=== PATIENT | female | born 1985 | race Hispanic/Latino ===

== ENCOUNTER 2017-12-03 00:55 | Emergency (ER) | payer MEDICAID ==
[2017-12-03] MEDS ORDERED: ONDANSETRON HCL 4 MG/2 ML VIAL ONE (02:06)
[2017-12-03] MEDS ORDERED: SODIUM CHLORIDE 0.9% 1000ML 1,000 ML IV ONE (02:06)
[2017-12-03 02:15] LABS: BASOPHILS % (AUTO) 2.2 % (0.0-5.0); EOSINOPHILS % (AUTO) 0.5 % (0.0-8.0); HEMATOCRIT 46.6 % (36-48); LYMPHOCYTES % (AUTO) 6.1 % (21.0-51.0); MEAN CORPUSCULAR HEMOGLOBIN 30.6 pg (27.0-33.0); MEAN CORPUSCULAR HGB CONC 33.9 g/dL (32.0-36.0); MEAN CORPUSCULAR VOLUME 90.3 fL (79-99); NEUTROPHILS % (AUTO) 86.2 % (40.0-77.0); PLATELET COUNT (AUTO) 225 K/uL (130-400); RED BLOOD CELL COUNT(AUTO) 5.16 MIL/uL (4.00-5.50); RED CELL DISTRIBUTION WIDTH 13.4 % (11.0-15.5); WHITE BLOOD COUNT (AUTO) 7.7 K/uL (4.8-10.8)
[2017-12-03 02:25] LABS: CREATININE 0.8 mg/dL (0.5-1.5); POTASSIUM 4.3 mmol/L (3.5-5.1)
[2017-12-03 02:28] LABS: BILIRUBIN,TOTAL 0.7 mg/dL (0.2-1.0)
[2017-12-03 02:32] LABS: APPEARANCE,URINE Clear (CLEAR); BILIRUBIN,URINE Negative (NEGATIVE); COLOR,URINE Yellow (YELLOW); GLUCOSE, URINE (UA) Negative (NEGATIVE); KETONES,URINE Negative (NEGATIVE); LEUKOCYTE ESTERASE ,URINE Negative (NEGATIVE); NITRATE,URINE Negative (NEGATIVE); OCCULT BLOOD,URINE Nonhemolyzed Trace (NEGATIVE); PH,URINE 5.5 (5.0-8.0); PROTEIN,URINE Negative (NEGATIVE); UROBILINOGEN,URINE 0.2 mg/dL (0.2-1.0)
[2017-12-03 02:42] LABS: AMPHET/METH SCREEN,URINE NEGATIVE (NEGATIVE); BACTERIA,URINE Rare /HPF (None Seen); BARBITURATE SCREEN, URINE NEGATIVE (NEGATIVE); BENZODIAZEPINES SCREEN,URINE POSITIVE (NEGATIVE); CANNABINOID SCREEN,URINE NEGATIVE (NEGATIVE); COCAINE SCREEN,URINE NEGATIVE (NEGATIVE); MUCUS,URINE Few LPF (None Seen); OPIATE SCREEN,URINE NEGATIVE (NEGATIVE); PHENCYCLIDINE SCREEN,URINE NEGATIVE (NEGATIVE); RBC,URINE 0-1 /HPF (0-1); SQUAMOUS EPITHELIAL CELL,UR Few /LPF (0-2); WBC,URINE 0-1 /HPF (0-1)
[2017-12-03 02:43] LABS: HCG,QUAL RESULT NEGATIVE (NEGATIVE)
[2017-12-03] MEDS ORDERED: HYOSCYAMINE SULFATE 0.125 MG TAB.SUBL SL ONE (03:52)
== END 2017-12-03 04:23 | disposition home or self-care (01) ==
LOC: EDH 00:55
DX: K52.9 Noninfective gastroenteritis and colitis, unspecified (principal); F31.9 Bipolar disorder, unspecified; Z90.49 Acquired absence of other specified parts of digestive tract; Z98.890 Other specified postprocedural states
CPT/HCPCS: 36415; 80053; 80305; 81001; 81025; 82150; 82270; 83690; 85025; 87046; 87177; 87205; 96361; 96374; 99285; J2405; J7030

== ENCOUNTER 2017-12-20 03:58 | Emergency (ER) | payer SELFPAY ==
[2017-12-20] MEDS ORDERED: DiphenhydrAMINE HCL 50 MG/ML VIAL ONE (04:29)
[2017-12-20] MEDS ORDERED: LORAZEPAM 1 MG TABLET ONE (04:30)
== END 2017-12-20 04:38 | disposition home or self-care (01) ==
LOC: EDH 03:58
DX: F41.1 Generalized anxiety disorder (principal); F31.9 Bipolar disorder, unspecified; Z90.49 Acquired absence of other specified parts of digestive tract; Z98.890 Other specified postprocedural states
CPT/HCPCS: 96372; 99284; J1200

== ENCOUNTER 2019-02-21 01:12 | Emergency (ER) | payer MEDICAID ==
[2019-02-21] MEDS ORDERED: ONDANSETRON HCL 4 MG/2 ML VIAL ONE (01:42)
[2019-02-21] MEDS ORDERED: MORPHINE SULFATE 4 MG/1ML SYG ONE (01:43)
[2019-02-21 01:44] LABS: APPEARANCE,URINE CLEAR (CLEAR); BASOPHILS % (AUTO) 0.6 % (0.0-5.0); BILIRUBIN,URINE NEGATIVE (NEGATIVE); COLOR,URINE YELLOW (YELLOW); EOSINOPHILS % (AUTO) 2.3 % (0.0-8.0); GLUCOSE, URINE (UA) NEGATIVE (NEGATIVE); KETONES,URINE NEGATIVE (NEGATIVE); LEUKOCYTE ESTERASE ,URINE NEGATIVE (NEGATIVE); LYMPHOCYTES % (AUTO) 44.6 % (21.0-51.0); MEAN CORPUSCULAR HEMOGLOBIN 31.9 pg (27.0-33.0); MEAN CORPUSCULAR HGB CONC 34.5 g/dL (32.0-36.0); MEAN CORPUSCULAR VOLUME 92.6 fL (79-99); NEUTROPHILS % (AUTO) 44.5 % (40.0-77.0); NITRATE,URINE NEGATIVE (NEGATIVE); OCCULT BLOOD,URINE NEGATIVE (NEGATIVE); PLATELET COUNT (AUTO) 195 K/uL (130-400); PROTEIN,URINE NEGATIVE (NEGATIVE); RED BLOOD CELL COUNT(AUTO) 4.54 MIL/uL (4.00-5.50); RED CELL DISTRIBUTION WIDTH 13.1 % (11.0-15.5); UROBILINOGEN,URINE 0.2 mg/dL (0.2-1.0); WHITE BLOOD COUNT (AUTO) 5.4 K/uL (4.8-10.8)
[2019-02-21 01:47] LABS: HCG,QUAL RESULT NEGATIVE (NEGATIVE)
[2019-02-21] MEDS ORDERED: 0.9% SODIUM CHLORIDE 1000 ML IV BAG IV ONE (01:48)
[2019-02-21 02:49] LABS: CREATININE 0.6 mg/dL (0.5-1.5); POTASSIUM 3.5 mmol/L (3.5-5.1)
[2019-02-21 02:54] LABS: ALBUMIN 3.1 g/dL (3.5-5.0); BILIRUBIN,TOTAL 0.2 mg/dL (0.2-1.0)
[2019-02-21] MEDS ORDERED: IOHEXOL-350 75 ML VIAL IV ONE (02:58)
== END 2019-02-21 05:48 | disposition home or self-care (01) ==
LOC: EDH 01:12
DX: K52.9 Noninfective gastroenteritis and colitis, unspecified (principal); N83.201 Unspecified ovarian cyst, right side; F32.9 Major depressive disorder, single episode, unspecified; F41.9 Anxiety disorder, unspecified; Z90.49 Acquired absence of other specified parts of digestive tract; Z98.890 Other specified postprocedural states; Z87.891 Personal history of nicotine dependence
CPT/HCPCS: 36415; 74177; 76856; 80053; 81003; 81025; 83690; 85025; 96361; 96374; 96375; 99285; J2270; J2405; J7030; Q9967

== ENCOUNTER 2019-03-17 05:45 | Day surgery (SDC) | payer MEDICAID ==
[~2019-03-17] VITALS: Ht 160 cm; Wt 63.0 kg
[2019-03-17] MEDS ORDERED: SODIUM CHLORIDE 0.9% 1000ML 1,000 ML IV ONE (05:50)
[2019-03-17] MEDS ORDERED: TRAM50TA4 PO (07:08)
[2019-03-17] MEDS ORDERED: ALPR2TAB7 PO (07:08)
[2019-03-17 07:14] VITALS: BP 111/59
[2019-03-17] MEDS ORDERED: PROPOFOL 1000 MG/100 ML 100 ML IV ONE (08:31)
[2019-03-17] MEDS ORDERED: LIDOCAINE HCL-MPF 2% 5ML VIAL ONE (08:33)
[2019-03-17] MEDS ORDERED: LIDOCAINE HCL 1% 20 ML VIAL ONE (08:57)
[2019-03-17 09:03] VITALS: BP 95/59
[2019-03-17 09:06] VITALS: BP 110/63
[2019-03-17 09:12] VITALS: BP 102/64
[2019-03-17 09:18] VITALS: BP 100/74
== END 2019-03-17 09:32 | disposition home or self-care (01) ==
LOC: ENDO 05:45 → DAH 05:45 → ENDO 09:32
PROVIDERS: ATTEND Internal Medicine
DX: K64.0 First degree hemorrhoids (principal); K22.8 Other specified diseases of esophagus; K29.50 Unspecified chronic gastritis without bleeding; B96.81 Helicobacter pylori [H. pylori] as the cause of diseases classified elsewhere; K31.89 Other diseases of stomach and duodenum; F17.210 Nicotine dependence, cigarettes, uncomplicated; Z72.89 Other problems related to lifestyle; R19.4 Change in bowel habit; F41.9 Anxiety disorder, unspecified; K21.9 Gastro-esophageal reflux disease without esophagitis; F31.9 Bipolar disorder, unspecified; G25.81 Restless legs syndrome; Z79.899 Other long term (current) drug therapy; Z98.890 Other specified postprocedural states; I10 Essential (primary) hypertension; E11.9 Type 2 diabetes mellitus without complications
CPT/HCPCS: 43239; 45380; 88305; A4606; J2704; J3490; J7030; 43231

== ENCOUNTER 2019-09-17 16:38 | Emergency (ER) | payer MEDICAID ==
[~2019-09-17 16:38] MED LIST: ALPR2TAB7 PO; TRAM50TA4 PO
[2019-09-17 17:25] LABS: BASOPHILS % (AUTO) 1.1 % (0.0-5.0); EOSINOPHILS % (AUTO) 0.4 % (0.0-8.0); HEMATOCRIT 41.3 % (36-48); LYMPHOCYTES % (AUTO) 11.8 % (21.0-51.0); MEAN CORPUSCULAR HEMOGLOBIN 30.7 pg (27.0-33.0); MEAN CORPUSCULAR HGB CONC 33.5 g/dL (32.0-36.0); MEAN CORPUSCULAR VOLUME 91.5 fL (79-99); MONOCYTES % (AUTO) 4.7 % (3.0-13.0); PLATELET COUNT (AUTO) 174 K/uL (130-400); RED BLOOD CELL COUNT(AUTO) 4.51 MIL/uL (4.00-5.50); RED CELL DISTRIBUTION WIDTH 13.3 % (11.0-15.5); WHITE BLOOD COUNT (AUTO) 9.8 K/uL (4.8-10.8)
[2019-09-17 17:27] LABS: APPEARANCE,URINE Cloudy (CLEAR); BILIRUBIN,URINE Negative (NEGATIVE); COLOR,URINE Yellow (YELLOW); GLUCOSE, URINE (UA) Negative (NEGATIVE); KETONES,URINE Negative (NEGATIVE); LEUKOCYTE ESTERASE ,URINE Negative (NEGATIVE); NITRATE,URINE Negative (NEGATIVE); OCCULT BLOOD,URINE Negative (NEGATIVE); PH,URINE >=9.0 (5.0-8.0); PROTEIN,URINE Negative (NEGATIVE); UROBILINOGEN,URINE 0.2 mg/dL (0.2-1.0)
[2019-09-17 17:35] LABS: CREATININE 0.8 mg/dL (0.5-1.5); HCG,QUAL RESULT NEGATIVE (NEGATIVE); POTASSIUM 3.4 mmol/L (3.5-5.1)
[2019-09-17] MEDS ORDERED: SODIUM CHLORIDE 0.9% 1000ML 1,000 ML IV ONE (17:36)
[2019-09-17 17:40] LABS: ALBUMIN 3.4 g/dL (3.5-5.0); BILIRUBIN,TOTAL 0.2 mg/dL (0.2-1.0); TOTAL PROTEIN, SERUM 6.9 g/dL (6.0-8.3)
[2019-09-17 17:44] LABS: BACTERIA,URINE Few /HPF (None Seen); RBC,URINE 0-1 /HPF (0-1); SQUAMOUS EPITHELIAL CELL,UR Few /HPF (0-2); WBC,URINE 0-1 /HPF (0-1)
[2019-09-17 17:45] LABS: AMORPHOUS SEDIMENT,UR Few /LPF (None Seen)
[2019-09-17] MEDS ORDERED: LIDOCAINE HCL 2% VISCOUS 15 ML UDCUP ONE (18:01)
[2019-09-17] MEDS ORDERED: MAG HYDROX/AL HYDROX/SIMETH ES 30 ML SUSP UDCUP ONE (18:02)
[2019-09-17] MEDS ORDERED: KETOROLAC TROMETHAMINE 30MG/ML ONE (18:24)
== END 2019-09-17 19:09 | disposition home or self-care (01) ==
LOC: EDH 16:38
DX: N83.299 Other ovarian cyst, unspecified side (principal); F41.9 Anxiety disorder, unspecified; F32.9 Major depressive disorder, single episode, unspecified; Z90.49 Acquired absence of other specified parts of digestive tract; Z72.0 Tobacco use; Z98.890 Other specified postprocedural states
CPT/HCPCS: 36415; 76856; 80053; 81001; 81025; 83690; 85025; 87804 ×2; 96374; 99285; J1885; J7030

== ENCOUNTER 2022-06-21 06:10 | Emergency (ER) | payer MEDICAID ==
[~2022-06-21] VITALS: Ht 160 cm; Wt 76.7 kg
[2022-06-21 06:34] VITALS: BP 121/63
[2022-06-21] MEDS ORDERED: GABA300C PO (06:56)
[2022-06-21] MEDS ORDERED: ROPI1TAB13 PO (06:56)
== END 2022-06-21 07:02 | disposition home or self-care (01) ==
LOC: EDH 06:10
DX: G25.81 Restless legs syndrome (principal); F31.9 Bipolar disorder, unspecified; Z79.899 Other long term (current) drug therapy; Z90.49 Acquired absence of other specified parts of digestive tract

== ENCOUNTER 2024-10-18 14:11 | Emergency (ER) | payer MEDICAID ==
[~2024-10-18] VITALS: Ht 160 cm; Wt 79.4 kg
[~2024-10-18 14:11] MED LIST changes: +GABA300C PO; +ROPI1TAB46 PO
--- NOTE | 2024-10-18 15:05 | ERN ---
ED Note History of Present Illness Stated Complaint: VAGINAL BLEEDING Chief Complaint: Vaginal Problems/Bleeding Time Seen by MD: 14:20 Dictation: PATIENT ARRIVES HERE WITH SUPRAPUBIC CRAMPING AND HEAVY VAGINAL BLEEDING ONSET THIS MORNING. NO FEVER NO CHILLS NO NAUSEA VOMITING. SHE STATES HER PERIOD WAS NOT SUPPOSED TO START TODAY, DENIES BEING . PATIENT OF DR. PATY VIGIL, PATIENT DID NOT TAKE ANYTHING PRIOR TO ARRIVAL FOR PAIN. Allergies: Coded Allergies: No Known Drug Allergies (Unverified Allergy, Unknown, 03/17/19) Home Meds Active Scripts Ropinirole HCl (Ropinirole HCl) 1 Mg Tablet, 1-2 TAB PO at bedtime PRN for Restless legs, #30 TAB 0 Refills Prov:MIGUEL CRUZ MD 06/21/22 Gabapentin (Neurontin) 300 Mg Capsule, 1-2 CAP PO at bedtime PRN for Restless legs, #30 CAP 0 Refills Prov:MIGUEL CRUZ MD 06/21/22 Reported Medications Tramadol Hcl (Tramadol HCl) 50 Mg Tablet, 50 MG PO AD, TAB 03/17/19 Alprazolam (Alprazolam) 2 Mg Tablet, 2 MG PO BID, TAB 03/17/19 Past Medical History Past Medical History: Anxiety, Bipolar, Depression Additional Past Medical Hx: PSYCHOSIS; RESTLESS LEG SYNDROME; PTSD Surgical History: Cholecystectomy, Surgical History Other: D & C X 2 PSYCH History: no pertinent psych hx Social History: Other RN Note Reviewed/Agreed w/PFSH: Yes Review of System Dictation CONSTITUTIONAL: NEGATIVE EXCEPT FOR HPI HEAD/FACE: NEGATIVE EXCEPT FOR HPI EENT: NEGATIVE EXCEPT FOR HPI RESPIRATORY: NEGATIVE EXCEPT FOR HPI GASTROINTESTINAL/ABDOMINAL: NEGATIVE EXCEPT FOR HPI GENITOURINARY: NEGATIVE EXCEPT FOR HPI VAGINAL BLEEDING WITH PELVIC CRAMPING MUSCULOSKELETAL: NEGATIVE EXCEPT FOR HPI INTEGUMENTARY: NEGATIVE EXCEPT FOR HPI NEUROLOGICAL/PSYCH: NEGATIVE EXCEPT FOR HPI HEMATOLOGIC/LYMPHATIC: NEGATIVE EXCEPT FOR HPI ALL SYSTEMS NEGATIVE, EXCEPT NOTED ABOVE. 13 POINT REVIEW OF SYSTEMS ASSESSED AND ALL NEGATIVE EXCEPT FOR ABOVE. Initial Vital Sign VS Vital Signs Date Time Temp Pulse Resp B/P (MAP) Pulse Ox O2 Delivery O2 Flow Rate FiO2 10/18/24 15:03 98.4 78 16 144/98 96 Room Air 0 10/18/24 15:06 21 Physical Exam Dictation VITAL SIGNS REVIEWED GENERAL APPEARANCE: ALERT, ORIENTED X 3, MILD ACUTE DISTRESS, WELL DEVELOPED, NOURISHED. HEAD AND FACE: NON-TRAUMATIC. EYES: PERRL, PINK CONJUNCTIVAS, EYELID NO TRAUMA, ANTERIOR CHAMBER WITH ARCUS SENILIS. EARS: PINNAS INTACT AND NO SIGNS OF TRAUMA OR ERYTHEMA EAR CANALS CLEAR AND NO DISCHARGE TM NO ERYTHEMA NOSE: NO DISCHARGE, NO BLEEDING. OROPHARYNX: MOUTH NORMAL, TONGUE PINK, PHARYNX CLEAR,NO ERYTHEMA, TONSILS NO EXUDATES, NO ABSCESSES NOTED, MUCOUS MEMBRANE MOIST NECK: SUPPLE, NON-TENDER, NO THYROMEGALY, NO MASSES, NO JVD, NO BRUITS BREAST:DEFERRED CHEST:NO TENDERNESS, NO CREPITUS, NO PARADOXICAL MOVEMENT, NO RETRACTIONS LUNGS:CLEAR, WELL-VENTILATED, SYMMETRIC, NO RALES, NO WHEEZING, NO RHONCHI, NO STRIDOR, GOOD BREATH SOUNDS BILATERALLY HEART: REGULAR RATE, REGULAR RHYTHM, NO MURMUR, NO GALLOPS VASCULAR: NO PERIPHERAL EDEMA, ABDOMEN: SOFT, POSITIVE BOWEL SOUNDS, NONDISTENDED, NO GUARDING, NONTENDER, NO REBOUND, NO MASSES NO HEPATOMEGALY, NO SPLENOMEGALY, NO WHIPPLE'S SIGN, NO HERNIAS. RECTAL: DEFERRED GENITAL: DEFERRED NEUROLOGICAL: NORMAL SPEECH, MOTOR FUNCTION INTACT, SENSORY FUNCTION INTACT MUSCULOSKELETAL: NECK NONTENDER, FULL RANGE OF MOTION, BACK NONTENDER, FULL RANGE OF MOTION, EXTREMITIES: NONTENDER, FULL RANGE OF MOTION SKIN: COLOR PINK, DRY, NO TURGOR, NO RASH, NO LACERATIONS, NO ABRASIONS, NO CONTUSIONS. LYMPHATIC: DEFERRED Results (Laboratory/Radiology) Laboratory/Radiology Laboratory Tests Test 10/18/24 15:13 White Blood Count 6.7 K/uL (4.8-10.8) Red Blood Count 4.44 MIL/uL (4.00-5.50) Hemoglobin 14.0 g/dL (12.0-16.0) Hematocrit 40.8 % (36-48) Mean Corpuscular Volume 91.9 fL (79-99) Mean Corpuscular Hemoglobin 31.5 pg (27.0-33.0) Mean Corpuscular Hemoglobin Concent 34.3 g/dL (32.0-36.0) Red Cell Distribution Width 12.6 % (11.0-15.5) Platelet Count 263 K/uL (130-400) Mean Platelet Volume 10.6 fL (7.5-10.5) H Immature Granulocyte % (Auto) 0.3 % (0-1) Neutrophils (%) (Auto) 60.5 % (40.0-77.0) Lymphocytes (%) (Auto) 31.1 % (21.0-51.0) Monocytes (%) (Auto) 6.4 % (3.0-13.0) Eosinophils (%) (Auto) 1.0 % (0.0-8.0) Basophils (%) (Auto) 0.7 % (0.0-5.0) Neutrophils # (Auto) 4.0 K/uL (1.8-7.7) Lymphocytes # (Auto) 2.1 K/uL (1.0-4.8) Monocytes # (Auto) 0.4 K/uL (0.1-1.0) Eosinophils # (Auto) 0.07 K/uL (0.00-0.70) Basophils # (Auto) 0.05 K/uL (0.00-0.20) Absolute Immature Granulocyte (auto 0.02 K/uL (0-1) Nucleated Red Blood Cells 0.0 % (0.0-0.19) Sodium Level 143 mmol/L (136-145) Potassium Level 4.0 mmol/L (3.5-5.1) Chloride Level 108 mmol/L (101-111) Carbon Dioxide Level 29 mmol/L (21-32) Blood Urea Nitrogen 7 mg/dL (7-18) Creatinine 0.7 mg/dL (0.5-1.0) Glomerular Filtration Rate Calc 112 mL/min (>90) Random Glucose 92 mg/dL (70-105) Total Calcium 8.4 mg/dL (8.5-10.1) L Serum Test, Qualitative NEGATIVE (NEGATIVE) Labs Reviewed?: Yes ED Course ED Course Orders Procedure Category Date Status Time Cbc With Differential LAB 10/18/24 Complete 15: Basic Metabolic Panel LAB 10/18/24 Complete 15:02 Testing, LAB 10/18/24 Complete Serum Hcg 15:02 Acetaminophen 500mg PHA 10/18/24 Complete Tab (Tylenol 500mg T 15:30 Current Medications Medications (Trade) Dose Ordered Sig/Tatiana Route PRN Reason Start Time Stop Time Status Last Admin Dose Admin Acetaminophen (TYLenol 500MG TAB) 1,000 mg ONCE ONCE PO 10/18/24 15:30 10/18/24 15:31 DC Vital Signs Date Time Temp Pulse Resp B/P (MAP) Pulse Ox O2 Delivery O2 Flow Rate FiO2 10/18/24 15:06 98.4 78 16 144/98 96 Room Air* 0 21 10/18/24 15:03 98.4 78 16 144/98 96 Room Air 0 SIXTEEN 30, PATIENT WILL BE DISCHARGED HOME WITH DYSMENORRHEA. SHE WILL BE TOLD TO FOLLOW UP WITH HER FELLING BUCKING SUPERVISOR DOCTOR IN THE NEXT 1-2 DAYS. Medical Decision Making MDM MEDICAL DISCHARGE MAKING BASIC LABS TO INCLUDE HCG. PATIENT LABS NORMAL H&H NORMAL NO WE WILL DISCHARGE PATIENT HOME WITH DYSMENORRHEA DX & DISP Disposition: Discharge Departure Impression: Primary Impression: Dysmenorrhea Condition: Stable Scripts Ibuprofen (Ibuprofen 800 mg Tab) 800 Mg Tab 800 MG PO Q8H PRN for fever or pain, #30 TAB 0 Refills Prov: RAMO GERMAIN NP 10/18/24 Additional Instructions: FOLLOW-UP WITH PRIMARY CARE PROVIDER IN 1 TO 2 DAYS. TAKE MEDICATIONS DIRECTED HERE IN THE EMERGENCY ROOM. OKAY TO CONTINUE HOME MEDICATIONS UNLESS OTHERWISE DISCUSSED DURING YOUR VISIT IN THE EMERGENCY ROOM TODAY. RETURN TO YOUR NEAREST EMERGENCY ROOM IF SYMPTOMS WORSEN OR IF THERE IS NO IMPROVEMENT. CALL 911 IF YOU NEED IMMEDIATE ASSISTANCE. TAKE TYLENOL OR MOTRIN [id number] NEEDED AND IF NO CONTRAINDICATIONS ARE PRESENT. INCREASE ORAL HYDRATION. A WOUND CULTURE OR URINE CULTURE WAS ORDERED HERE IN THE EMERGENCY ROOM DEPARTMENT PLEASE FOLLOW-UP WITH PRIMARY CARE PROVIDER AND ADVISE THEM TO GET REPEAT PORTS FROM OUR FACILITY. IF YOU HAD ANY ALFA WRAP/SPLINTS THAT WERE APPLIED HERE, PLEASE DO NOT REMOVE THEM UNTIL YOU SEE YOUR PRIMARY CARE OR SPECIALTY. DIET AND ACTIVITY TOLERATED. TAKE IBUPROFEN NEEDED FOR PAIN. SUGGEST WARM COMPRESSES TO PELVIS THREE TO 4 TIMES A DAY AND SEE YOUR FELLING BUCKING SUPERVISOR DOCTOR IN 1-2 DAYS. Referrals: Amelia BRANHAM MD (PCP) Time of Disposition: 16:30 I have reviewed the case, and I agree with, Diagnosis and Plan RAMO GERMAIN NP Oct 18, 2024 15:05
[2024-10-18 15:06] VITALS: BP 144/98; PULSE 78; RESP 16; TEMP 98.4; O2SAT 96
[2024-10-18 15:21] LABS: BASOPHILS # (AUTO) 0.05 K/uL (0.00-0.20); BASOPHILS % (AUTO) 0.7 % (0.0-5.0); EOSINOPHILS # (AUTO) 0.07 K/uL (0.00-0.70); HEMATOCRIT 40.8 % (36-48); IMMATURE GRANULOCYTE ABSOLUTE 0.02 K/uL (0-1); LYMPHOCYTES # (AUTO) 2.1 K/uL (1.0-4.8); LYMPHOCYTES % (AUTO) 31.1 % (21.0-51.0); MEAN CORPUSCULAR HEMOGLOBIN 31.5 pg (27.0-33.0); MEAN CORPUSCULAR HGB CONC 34.3 g/dL (32.0-36.0); MEAN CORPUSCULAR VOLUME 91.9 fL (79-99); MONOCYTES # (AUTO) 0.4 K/uL (0.1-1.0); MONOCYTES % (AUTO) 6.4 % (3.0-13.0); NEUTROPHILS % (AUTO) 60.5 % (40.0-77.0); PLATELET COUNT (AUTO) 263 K/uL (130-400); RED BLOOD CELL COUNT(AUTO) 4.44 MIL/uL (4.00-5.50); RED CELL DISTRIBUTION WIDTH 12.6 % (11.0-15.5); WHITE BLOOD COUNT (AUTO) 6.7 K/uL (4.8-10.8)
[2024-10-18 15:33] LABS: CREATININE 0.7 mg/dL (0.5-1.0)
[2024-10-18] MEDS ORDERED: IBUP-2077 PO (16:31)
[2024-10-18] MEDS: acetaMINOPHEN 500 MG TABLET PO ONE (17:13)
== END 2024-10-18 17:15 | disposition left against medical advice (07) ==
LOC: EDH 14:11
DX: N94.6 Dysmenorrhea, unspecified (principal); F41.9 Anxiety disorder, unspecified; F31.9 Bipolar disorder, unspecified; Z79.899 Other long term (current) drug therapy; Z90.49 Acquired absence of other specified parts of digestive tract
CPT/HCPCS: 36415; 80048; 84703; 85025; 99283